=== PATIENT | female | born 1990 | race Caucasian/White ===

== ENCOUNTER 2016-07-18 09:31 | Emergency (ER) | payer OTHER, SELFPAY ==
[2016-07-18] MEDS ORDERED: diphenhydrAMINE HCl 50 MG/ML 1 ML VIAL ONE (10:32)
[2016-07-18] MEDS ORDERED: Acetaminophen 500 MG TAB ONE (10:55)
[2016-07-18 11:01] LABS: Bacteria/HPF Rare-Few HPF (None Seen); Bilirubin Negative (Negative); Blood, Urine Trace (Negative); Clarity Hazy (Clear); Glucose, Urine (Dipstick) Negative (Negative); Leukocyte Trace (Negative); Nitrite Negative (Negative); Protein, Urine (Dipstick) Trace mg/dL (Neg-Trace); Squamous Epithelial 0-3 HPF (0-3); Urobilinogen 0.2 mg/dL (0.2-1.0); pH, Urine 6.5 (5.0-9.0)
== END 2016-07-18 11:40 | disposition home or self-care (01) ==
LOC: MADERS 09:31
DX: N34.1 Nonspecific urethritis (principal); T36.8X5A Adverse effect of other systemic antibiotics, initial encounter
CPT/HCPCS: 81003; 81015; 87086; 96372; J1200